=== PATIENT | female | born 1970 | race Caucasian/White ===

== ENCOUNTER → 2018-01-25 | Outpatient (CLI) | payer OTHER | LOC: STAR 09:39 | PROVIDERS: ATTEND Internal Medicine | DX: Z02.9 Encounter for administrative examinations, unspecified (principal) ==

== ENCOUNTER 2018-02-02 09:17 | Day surgery (SDC) | payer OTHER ==
[~2018-02-02] VITALS: Ht 162.6 cm; Wt 67.0 kg
[2018-02-02] MEDS ORDERED: LACTATED RINGERS 1,000 ML IV SCH (09:44)
[2018-02-02] MEDS ORDERED: DEXAMETHASONE 4 MG/ML, 1ML ONE (10:01)
[2018-02-02] MEDS ORDERED: ONDANSETRON 2MG/ML, 2ML ONE ×2 (10:01→11:26)
[2018-02-02] MEDS ORDERED: SUCCINYLCHOLINE 20 MG/ML, 10ML ONE (10:01)
[2018-02-02] MEDS ORDERED: GLYCOPYRROLATE 0.2MG/1ML, 5ML ONE (10:01)
[2018-02-02] MEDS ORDERED: CEFAZOLIN 1,000 MG ONE (10:01)
[2018-02-02] MEDS ORDERED: NEOSTIGMINE 1 MG/ML, 10ML ONE (10:01)
[2018-02-02] MEDS ORDERED: MIDAZOLAM 1 MG/ML, 2ML ONE (10:01)
[2018-02-02] MEDS ORDERED: PROPOFOL 10 MG/ML, 20ML ONE (10:01)
[2018-02-02] MEDS ORDERED: morphine SULFATE 10 MG/ML, 1ML IV PRN (11:00)
[2018-02-02] MEDS ORDERED: HYDROmorphone 1 MG/ML, 1ML IV PRN (11:00)
[2018-02-02] MEDS ORDERED: MIDAZOLAM 1 MG/ML, 2ML IV PRN (11:00)
[2018-02-02] MEDS ORDERED: FENTANYL PF 100 MCG/2ML IV PRN (11:00)
[2018-02-02] MEDS ORDERED: OXYcodone 5 MG/5 ML ORAL.SOL UDC PO PRN (11:00)
[2018-02-02] MEDS ORDERED: HYDROcodone/APAP 7.5-325MG/15ML UDC PO PRN (11:00)
[2018-02-02] MEDS ORDERED: KETOROLAC 30 MG/1 ML IV PRN ×2 (11:00)
[2018-02-02] MEDS ORDERED: ACETAMINOPHEN 325 MG TABLET PO PRN (11:00)
[2018-02-02] MEDS ORDERED: MEPERIDINE/PF 25MG/0.5ML IVPush PRN (11:00)
[2018-02-02 11:03] LABS: HCG UR SG 1.022 (1.003-1.030)
[2018-02-02] MEDS ORDERED: ONDANSETRON 2MG/ML, 2ML IVPush ONE (11:30)
== END 2018-02-02 13:00 | disposition home or self-care (01) ==
LOC: OUT 09:17
PROVIDERS: ATTEND Internal Medicine
DX: K80.50 Calculus of bile duct without cholangitis or cholecystitis without obstruction (principal)
CPT/HCPCS: 43264; 43275; 74328; 81025; C1769; J0330; J0690; J1100; J2250; J2405; J2704; J2710; J7120; J3490